=== PATIENT | female | born 1960 | race African-American/Black ===

== ENCOUNTER 2021-01-25 16:16 | Emergency (ER) | payer SELFPAY ==
[~2021-01-25] VITALS: Ht 167.6 cm; Wt 74.8 kg
[2021-01-25 16:55] VITALS: BP 109/79
== END 2021-01-25 17:25 | disposition home or self-care (01) ==
LOC: ER 16:16
DX: F19.920 Other psychoactive substance use, unspecified with intoxication, uncomplicated (principal)

== ENCOUNTER 2024-11-11 15:34 | Emergency (ER) | payer MEDICAID, OTHER ==
[~2024-11-11] VITALS: Ht 167.6 cm; Wt 70.4 kg
[2024-11-11 16:24] LABS: Hematocrit 39.2 % (36.0-46.0); Hemoglobin 13.1 g/dL (12.2-16.2); Mean Corpuscular Hemoglobin 32.9 pg (28.0-32.0); Mean Corpuscular Hgb Conc. 33.4 g/dL (32.0-36.0); Mean Corpuscular Volume 98.4 fL (80.0-100.0); Platelet Count (auto) 485 10^3/uL (140-450); Red Blood Cells 3.98 10^6/uL (4.0-5.20); Red Cell Distribution Width 14.6 % (11.8-14.3); White Blood Cell 10.8 10^3/uL (4.4-10.8)
[2024-11-11 16:29] LABS: Band Neutrophils % (manual) 0; Basophils % (manual) 0 (0.0-2.0); Blast Cells 0; Metamyelocytes % 0; Myelocytes % 0; Promyelocytes % 0; Reactive Lymphocytes 0
[2024-11-11 16:37] LABS: Alanine Aminotransferase 28 U/L (7-40); Albumin 3.9 g/dL (3.2-4.8); Alkaline Phosphatase 91 U/L (46-116); Anion Gap 7 (5-15); Aspartate Aminotransferase 27 U/L (13-40); BUN/Creatinine Ratio 11.5 (10.0-20.0); Chloride 100 mmol/L (98-107); Sodium 139 mmol/L (136-145); Total Protein 6.8 g/dL (5.7-8.2)
[2024-11-11] MEDS: ALBUTEROL SULF 2.5 MG/0.5ML(0.5%) NEB SOLN NEB ONE ×2 (16:38→19:47)
[2024-11-11] MEDS: IPRATROPIUM BROM 0.5 MG/2.5ML INH SOL NEB ONE ×2 (16:38→19:47)
[2024-11-11 16:44] LABS: Bilirubin, Total 0.2 mg/dL (0.2-1.0); Blood Urea Nitrogen 7 mg/dL (9-23); Carbon Dioxide 32 mmol/L (20-31); Glucose 109 mg/dL (74-106); Potassium 2.9 mmol/L (3.5-5.1)
[2024-11-11 16:48] LABS: Eosinophils % (manual) 3 (0-7); Lymphocytes % (manual) 23 (10.0-50.0); Monocytes % (manual) 15 (0-12); Platelet Estimate Increased
--- NOTE | 2024-11-11 17:05 | DVH ---
EXAM: XY CHEST PORTABLE HISTORY: SOB' COMPARISON: None TECHNIQUE: Portable upright AP view of the chest was performed. FINDINGS: No pneumothorax or consolidative infiltrates. There is interstitial prominence centrally an d in the lung bases. The heart is enlarged. The aortic arch is calcific. IMPRESSION: Cardiomegaly and interstitial prominence which may be due to reactive airways disease or mild CHF.
[2024-11-11 17:10] VITALS: PULSE 101; RESP 18; O2SAT 95
[2024-11-11] MEDS: methylPREDNISolone SOD SUCC 125 MG/2 ML VL IV ONE (17:38)
[2024-11-11 17:57] LABS: Urine Bacteria None Seen /hpf (None Seen)
[2024-11-11 18:09] LABS: Urine Blood 1+ /uL (Negative); Urine Clarity Clear (Clear); Urine Color Yellow (Yellow); Urine Protein, UAD 1+ (Negative); Urine Specific Gravity 1.023 (1.001-1.035); Urine Squamous Epithelial Cell FEW /hpf (<5); Urine Urobilinogen 3 mg/dL (Negative); Urine WBC 5 /HPF (0-5)
[2024-11-11] MEDS: IPRATROPIUM BROM 0.5 MG/2.5ML INH SOL ONE (18:45)
[2024-11-11] MEDS: ALBUTEROL SULF 2.5 MG/0.5ML(0.5%) NEB SOLN ONE (18:45)
[2024-11-11 19:30] VITALS: BP 112/88; PULSE 97; RESP 22; TEMP 99.5; O2SAT 94
[2024-11-11 19:45] VITALS: RESP 18; O2SAT 94
--- NOTE | 2024-11-11 20:46 | ED.PDOC ---
SOB-HPI HPI Comments 64-year-old female complaining of shortness a breath which started getting worse over the last 2-3 days. States he has been dealing with a cough and congestion for the last two weeks. History of asthma. States she has been coughing up phlegm. No fever no chest pain no chills states she ran out of her inhaler at home. SpO2 88% on room air. 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[employer] COMM[employer]ICATION[employer] INSTRUCTOR History Social History Smoker: Non-Smoker Alcohol: Denies ETOH Use Drugs: Denies Drug Use Constitutional: denies: chills, diaphoresis, fatigue, fever, malaise, sweats, weakness, others EENTM: denies: blurred vision, double vision, ear bleeding, ear discharge, ear drainage, ear pain, ear ringing, eye pain, eye redness, hearing loss, mouth pain, mouth swelling, nasal discharge, nose bleeding, nose congestion, nose pain, photophobia, tearing, throat pain, throat swelling, voice changes, others Respiratory: reports: cough, wheezing; denies: hemoptysis, orthopnea, SOB at rest, shortness of breath, SOB with excertion, stridor, others Cardiovascular: denies: chest pain, dizzy spells, diaphoresis, Dyspnea on exertion, edema, irregular heart beat, left arm pain, lightheadedness, palpitations, PND, syncope, others Gastrointestinal: denies: abdomen distended, abdominal pain, blood streaked bowels, constipated, diarrhea, dysphagia, difficulty swallowing, hematemesis, melena, nausea, poor appetite, poor fluid intake, rectal bleeding, rectal pain, vomiting, others Genitourinary: denies: abnormal vagina bleeding, burning, dyspareunia, dysuria, flank pain, frequency, hematuria, incontinence, pain, , vagina discharge, urgency, others Neurological: denies: dizziness, fainting, headache, left sided numbness, left sided weakness, numbness, paresthesia, pre-existing deficit, right sided numbness, right sided weakness, seizure, speech problems, tingling, tremors, weakness, others Musculoskeletal: denies: back pain, gout, joint pain, joint swelling, muscle pain, muscle stiffness, neck pain, others Integumetry: denies: bruises, change in color, change in hair/nails, dryness, laceration, lesions, lumps, rash, wounds, others Allergic/Immunocompromised: denies: Difficulty Healing, Frequent Infections, Hives, Itching, others Physical Exam General Appearance: No Apparent Distress, Normal HEENT: Normal ENT Inspection, Pharynx Normal, TMs Normal Neck: Full Range of Motion, Non-Tender, Normal, Normal Inspection Respiratory: Chest Non-Tender, Lungs Clear, No Accessory Muscle Use, Rhonchi, Wheezing Cardiovascular: No Edema, No JVD, No Murmur, No Gallop, Normal Peripheral Pulses, Regular Rate/Rhythm Breast Exam: Deferred Gastrointestinal: No Organomegaly, Non Tender, No Pulsatile Mass, Normal Bowel Sounds, Soft Genitalia: Deferred Pelvic: Deferred Rectal: Deferred Extremities: No calf tenderness, Normal capillary refill, Normal inspection, Normal range of motion, Non-tender, No pedal edema Musculoskeletal : Apperance: Normal Neurologic: Alert, resource conservationist II-XII nml as Tested, No Motor Deficits, Normal Affect, Normal Mood, No Sensory Deficits Cerebellar Function: Normal Reflexes: Normal Skin: Dry, Normal Color, Warm Lymphatic: No Adenopathy Was a procedure done? Was a procedure done?: No Differential Dx Differential Diagnosis: Asthma, Bronchitis, Pneumonia, Pulmonary Embolism, Respiratory Distress X-Ray, Labs, Meds, VS Vital Signs Date Time Temp Pulse Resp B/P (MAP) Pulse Ox O2 Delivery O2 Flow Rate FiO2 11/11/24 19:45 18 94 Nasal Cannula* 6 44 11/11/24 19:30 99.5 97 22 112/88 (96) 94 99.5 11/11/24 18:14 99 16 119/90 (100) 94 11/11/24 17:10 101 18 95 Nasal Cannula* 6 44 11/11/24 17:00 101 18 121/70 (87) 95 11/11/24 16:37 14 96 Nasal Cannula* 6 44 11/11/24 16:36 99.6 100 20 122/74 (90) 96 99.6 11/11/24 16:06 105 11/11/24 15:54 22 94 Nasal Cannula* 6 44 11/11/24 15:54 97.5 107 19 105/63 (77) 94 Lab Test 11/11/24 17:50 11/11/24 16:12 Range/Units Urine Color Yellow Yellow Urine Clarity Clear Clear Urine pH 6.0 5.0-9.0 Urine Specific [place] 1.023 1.001-1.035 Urine Protein 1+ H Negative Urine Ketones Negative Negative Urine Blood 1+ H Negative /uL Urine Nitrite Negative Negative Urine Bilirubin Negative Negative Urine Urobilinogen 3 H Negative mg/dL Urine Leukocyte Esterase Negative Negative /uL Urine RBC 5 0 - 4 /hpf Urine Microscopic WBC 5 0-5 /HPF Urine Squamous Epithelial Cells Few <5 /hpf Urine Bacteria None seen None Seen /hpf Urine Glucose Normal Normal mg/dL White Blood Count 10.8 4.4-10.8 10^3/uL Red Blood Count 3.98 L 4.0-5.20 10^6/uL Hemoglobin 13.1 12.2-16.2 g/dL Hematocrit 39.2 36.0-46.0 % Mean Corpuscular Volume 98.4 80.0-100.0 fL Mean Corpuscular Hemoglobin 32.9 H 28.0-32.0 pg Mean Corpuscular Hemoglobin Concent 33.4 32.0-36.0 g/dL Red Cell Distribution Width 14.6 H 11.8-14.3 % Platelet Count 485 H 140-450 10^3/uL Mean Platelet Volume 7.4 6.9-10.8 fL Neutrophils (%) (Auto) 37.0-80.0 % Lymphocytes (%) (Auto) 10.0-50.0 % Monocytes (%) (Auto) 0.0-12.0 % Basophils (%) (Auto) 0.0-2.0 % Neutrophils # (Auto) 1.6-8.6 10 ^3/uL Lymphocytes # (Auto) 0.4-5.4 10 ^3/uL Monocytes # (Auto) 0-1.3 10 ^3/uL Differential Total Cells Counted 100.0 100 Neutrophils % (Manual) 59 37.0-80.0 Band Neutrophils % (Manual) 0 Lymphocytes % (Manual) 23 10.0-50.0 Monocytes % (Manual) 15 H 0-12 Eosinophils % (Manual) 3 0-7 Basophils % (Manual) 0 0.0-2.0 Metamyelocytes % (manual) 0 Myelocytes % (Manual) 0 Promyelocytes % (Manual) 0 Blast Cells % (Manual) 0 Reactive Lymphocytes 0 Platelet Estimate Increased Sodium Level 139 136-145 mmol/L Potassium Level 2.9 L 3.5-5.1 mmol/L Chloride Level 100 98-107 mmol/L Carbon Dioxide Level 32 H 20-31 mmol/L Anion Gap 7 5-15 Blood Urea Nitrogen 7 L 9-23 mg/dL Creatinine 0.61 0.550-1.02 mg/dL Glomerular Filtration Rate Calc 99 >90 mL/min BUN/Creatinine Ratio 11.5 10.0-20.0 Serum Glucose 109 H 74-106 mg/dL Calcium Level 10.0 8.7-10.4 mg/dL Total Bilirubin 0.2 0.2-1.0 mg/dL Aspartate Amino Transferase (AST) 27 13-40 U/L Alanine Aminotransferase (ALT) 28 7-40 U/L Alkaline Phosphatase 91 46-116 U/L B-Type Natriuretic Peptide 109.81 0-100 pg/mL Total Protein 6.8 5.7-8.2 g/dL Albumin 3.9 3.2-4.8 g/dL Current Medications Medications (Trade) Dose Ordered Sig/Tony Route Start Time Stop Time Status Last Admin Albuterol (Ventolin Medneb) 2.5 mg ONCE ONCE NEB 11/11/24 16:00 11/11/24 16:02 DC 11/11/24 16:38 Ipratropium [place] (Atrovent Medneb) 0.5 mg ONCE ONCE NEB 11/11/24 16:00 11/11/24 16:02 DC 11/11/24 16:38 Methylprednisolone Sodium Succinate (Solu Medrol) 125 mg ONCE ONCE IV 11/11/24 16:00 11/11/24 16:02 DC 11/11/24 17:38 Albuterol (Ventolin Medneb) 5 mg ONCE ONCE NEB 11/11/24 19:15 11/11/24 19:45 DC 11/11/24 19:47 Ipratropium [place] (Atrovent Medneb) 0.5 mg ONCE ONCE NEB 11/11/24 19:15 11/11/24 19:45 DC 11/11/24 19:47 X-Ray, Labs, Meds, VS Comment After 2nd breathing treatment and steroids, patient satting 86 on room air. Maintaining 4 L nasal cannula to reach 95% O2 saturation. Patient will be admitted for asthma exacerbation and hypoxia Time of 1ST Reevaluation: 20:45 Reevaluation 1ST: Unchanged Patient Education/Counseling: Diagnosis, Treatment Family Education/Counseling: Diagnosis Departure 1 Departure Time of Disposition: 20:44 Impression: Primary Impression: Asthma exacerbation Qualified Codes: J45.41 - Moderate persistent asthma with (acute) exacerbation Additional Impression: Hypoxia Disposition: ADMITTED INPATIENT Condition: Stable Discharged With: Self Critical Care Note Critical Care Time?: No Stability Stability form required: No Heart Score Heart Score: Heart Score Response (Comments) Value History N/A 0 EKG N/A 0 Age N/A 0 Risk Factors N/A 0 Troponin N/A 0 Total 0 VICKI RICKETTS Nov 11, 2024 20:46
[2024-11-11] MEDS ORDERED: DOCUSATE SOD 100 MG CAP PO PRN (21:15)
[2024-11-11] MEDS ORDERED: ALBUTEROL SULF 2.5 MG/0.5ML(0.5%) NEB SOLN NEB PRN (21:15)
[2024-11-11] MEDS ORDERED: HYDROcodone-ACET 5/325MG TAB PO PRN (21:15)
[2024-11-11] MEDS ORDERED: ONDANSETRON HCL 4 MG/2 ML VIAL IV PRN (21:15)
[2024-11-11] MEDS ORDERED: ACETAMINOPHEN 325 MG TAB PO PRN (21:15)
[2024-11-11] MEDS ORDERED: IPRATROPIUM BROM 0.5 MG/2.5ML INH SOL NEB PRN (21:15)
[2024-11-11] MEDS: POTASSIUM CHL 20 Meq TABLET PO ONE (21:25)
[2024-11-11] MEDS ORDERED: FAMOTIDINE (10MG/ML) 2ML VL IV SCH (22:00)
[2024-11-11] MEDS ORDERED: methylPREDNISolone SOD SUCC 125 MG/2 ML VL IV SCH (22:00)
--- NOTE | 2024-11-12 13:18 | ECG ---
[facility] Test Date: 2024-11-11 Test Time: 16:06:29 Pat Name: SUKH MOORE Department: ED Room: Gender: F Outbound Telemarketing Representative: VILMA : 1960 Requested By: VICKI RICKETTS Order Number: [id number] Reading MD: Efren Mondragon Measurements Intervals [place] Rate: 105 P: 89 MT: 143 QRS: 80 QRSD: 84 T: 30 QT: 347 QTc: 459 Interpretive Statements Sinus tachycardia Probable left atrial enlargement Nonspecific T abnormalities, anterior leads Electronically Signed On 11-13-2024 19:12:17 PDT by Efren Mondragon Please click the below link to view image of tracing.
== END 2024-11-11 21:26 | disposition left against medical advice (07) ==
LOC: ER 15:34
DX: J45.901 Unspecified asthma with (acute) exacerbation (principal); R09.02 Hypoxemia
CPT/HCPCS: 36415; 71045; 80053; 81001; 83880; 85007; 85027; 93005; 94640; 96374; 99285; J2919